=== PATIENT | female | born 1985 | race Two or more races ===

== ENCOUNTER 2020-11-21 22:22 | Emergency (ER) | payer MEDICAID, OTHER ==
[~2020-11-21] VITALS: Ht 160 cm; Wt 63.5 kg
[~2020-11-21 22:22] MED LIST: FER325T
[2020-11-22 00:15] VITALS: BP 143/86
[2020-11-22] MEDS ORDERED: IBUPROFEN 800 MG TAB PO ONE (01:15)
== END 2020-11-22 02:22 | disposition home or self-care (01) ==
LOC: ER 22:22
DX: R51.9 Headache, unspecified (principal); R25.2 Cramp and spasm; V43.52XA Car driver injured in collision with other type car in traffic accident, initial encounter; Y93.89 Activity, other specified; Y92.488 Other paved roadways as the place of occurrence of the external cause; Y99.8 Other external cause status
CPT/HCPCS: 70450; 72070; 72125